=== PATIENT | male | born 1950 | race Caucasian/White ===

== ENCOUNTER 2023-01-14 21:18 | Emergency (ER) | payer MEDICARE ==
--- NOTE | 2023-01-14 21:22 | ED ---
General Adult HPI - General Source: patient, RN notes reviewed <Tracey Andrade - Last Filed: 01/14/23 22:05> - History of Present Illness Onset/Timin -: days(s) Severity scale (1-10): 0 Consistency: constant Improves with: none Worsens with: none Associated Symptoms: cough Treatments Prior to Arrival: none <Blake Baker - Last Filed: 01/22/23 17:07> - General Stated complaint: Fever - History of Present Illness Initial comments: 72 year old male presents to the emergency department for chief complaint of fever. Patient states that he underwent surgery 6 days ago for cancer. He had a right parotidectomy with lymph node removal. He has a drain in his neck and 2 in his leg. This was preformed by Dr. Pineda at [facility]. His states that today he started running a fever of 103 degrees. He took Tylenol 1000mg around 2 hours ago. (Tracey Andrade) Patient has 72-year-old man presenting to have evaluation of fever and cough. Patient believes that he started having fever yesterday but they did not take his temperature. Cough started last night/early this morning. Patient states nonproductive cough. No dyspnea. No pains. He denies drainage from the surgical sites. (Blake Baker) - Related Data Previous Rx's Medication Instructions Recorded Azithromycin [Zithromax] 0 mg PO DIRECTED #6 tab 01/14/23 Nirmatrelvir/Ritonavir [Paxlovid 1 each PO ONCE #1 pack 01/14/23 2X150 mg-100 mg (Eua)] Allergies Allergy/AdvReac Type Severity Reaction Status Date / Time No Known Allergies Allergy Verified 01/14/23 22:10 Review of Systems ROS Other: All systems not noted in ROS Statement are negative. <Tracey Andrade - Last Filed: 01/14/23 22:05> ROS Other: All systems not noted in ROS Statement are negative. Constitutional: Reports: fever Eyes: Denies: eye pain, eye discharge ENT: Denies: ear pain, throat pain, congestion Respiratory: Reports: cough. Denies: dyspnea, wheezes, hemoptysis Cardiovascular: Denies: chest pain, palpitations, edema Gastrointestinal: Denies: abdominal pain, nausea, vomiting, diarrhea Genitourinary: Denies: dysuria, hematuria <Blake Baker - Last Filed: 01/22/23 17:07> ROS Statement: Those systems with pertinent positive or pertinent negative responses have been documented in the HPI. General Exam <Tracey Andrade - Last Filed: 01/14/23 22:05> General appearance: alert Head exam: Present: atraumatic, normocephalic Eye exam: Present: other (Right eyelid weakness). Absent: scleral icterus, conjunctival injection, nystagmus ENT exam: Present: mucous membranes dry Neck exam: Present: other (Right neck with postsurgical changes, the incision clean dry and intact. No abnormal warmth or erythema.) Respiratory exam: Present: normal lung sounds bilaterally. Absent: respiratory distress, wheezes, rales, rhonchi, stridor, accessory muscle use Cardiovascular Exam: Present: regular rate, normal rhythm, normal heart sounds. Absent: systolic murmur, diastolic murmur, rubs, gallop GI/Abdominal exam: Present: soft. Absent: distended, tenderness, guarding, rebo und, rigid, mass, pulsatile mass Extremities exam: Present: normal inspection, normal capillary refill, other (Patient has left thigh surgical site with drains not having any purulent drainage. The surgical incisions are clean dry and intact with no abnormal warmth or erythema. No tenderness.) Back exam: Present: normal inspection. Absent: CVA tenderness (R), CVA tenderness (L) Neurological exam: Present: alert Skin exam: Present: warm, dry, intact, normal color. Absent: rash, erythema <Blake Baker - Last Filed: 01/22/23 17:07> - General Exam Comments Initial Comments: Visual Physical Exam Vital signs reviewed General: Well-appearing, nontoxic, no acute distress. Head: Normocephalic, atraumatic Eyes: PERRLA, EOMI ENT: Airway patent Chest: Nonlabored breathing Skin: No visual rash, normal skin tone Neuro: Alert and oriented 3 Musculoskeletal: No gross abnormalities (Tracey Andrade) Course Vital Signs 01/14/23 01/14/23 01/14/23 22:00 22:42 23:39 Temperature 100.3 F H 99.1 F Pulse Rate 92 79 Respiratory 18 18 16 Rate Blood Pressure 101/53 115/59 O2 Sat by Pulse 92 L 97 Oximetry 01/15/23 00:45 Temperature 98.5 F Pulse Rate 78 Respiratory 16 Rate Blood Pressure 118/56 O2 Sat by Pulse 94 L Oximetry Medical Decision Making <Tracey Andrade - Last Filed: 01/14/23 22:05> - Lab Data Result diagrams: 01/14/23 22:14 01/14/23 22:14 <Blake Baker - Last Filed: 01/22/23 17:07> - Medical Decision Making I preformed the quick note portion of this chart. Electronically signed by Tracey Andrade PA-C (Tracey Andrade) Patient is 72-year-old man with fever found to have positive covid test. The patient would like to go home. There is questionable infiltrate on the chest x- ray and therefore patient will have coarse antibiotics as well as Limited. We discussed appropriate further care and follow-up. He will have low threshold to return to emergency department, discussed return parameters. Was pt. sent in by a medical professional or institution (JAZMINE Borden, PAGE MAKEUP SYSTEM OPERATOR, urgent care, hospital, or jail...) When possible be specific @ -[No] Did you speak to anyone other than the patient for history (EMS, parent, family, police, friend...)? What history was obtained from this source @ -[No] Did you review nursing and triage notes (agree or disagree)? Why? @ -[I reviewed and agree with nursing and triage notes] Were old charts reviewed (outside hosp., previous admission, EMS record, old EKG, old radiological studies, urgent care reports/EKG's, jail records)? Report findings @ -[No old charts were reviewed] Differential Diagnosis (chest pain, altered mental status, abdominal pain women, abdominal pain men, vaginal bleeding, weakness, fever, dyspnea, syncope, headache, dizziness, GI bleed, back pain, seizure, CVA, palpatations, mental health, musculoskeletal)? @ -[Differential Syncope: Valvular disease, hypertrophic cardiomyopathy, pulmonary embolism, tamponade, tachycardia, bradycardia, [place], hypovolemia, hemorrhage, dissection, anemia, intracranial hemorrhage, seizure, hypoglycemia, carbon monoxide poisoning, this is not meant to be an all-inclusive list. Dyspnea EKG interpreted by me (3pts min.). @ -[Interpreted As above] X-rays interpreted by me (1pt min.). @ -[Interpreted as above CT interpreted by me (1pt min.). @ -[None done] U/S interpreted by me (1pt. min.). @ -[None done] What testing was considered but not performed or refused? (CT, X-rays, U/S, labs)? Why? @ -[None] What meds were considered but not given or refused? Why? @ -[None] Did you discuss the management of the patient with other professionals (professionals i.e. , PA, PAGE MAKEUP SYSTEM OPERATOR, lab, RT, psych nurse, social research assistant, door worker, teacher, enforcement safety officer, child welfare caseworker)? Give summary @ -[No] Was smoking cessation discussed for >3mins.? @ -[No] Was critical care preformed (if so, how long)? @ -[No] Were there social determinants of health that impacted care today? How? (Homelessness, low income, unemployed, alcoholism, drug addiction, transportation, low edu. Level, literacy, decrease access to med. care, intermediate, rehab)? @ -[No] Was there de-escalation of care discussed even if they declined (Discuss DNR or withdrawal of care, Hospice)? DNR status @ -[No] What co-morbidities impacted this encounter? (DM, HTN, Smoking, COPD, CAD, Cancer, CVA, ARF, Chemo, Hep., AIDS, mental health diagnosis, sleep apnea, morbid obesity)? @ -[None] Was patient admitted / discharged? Hospital course, mention meds given and route, prescriptions, significant lab abnormalities, going to OR and other pertinent info. @ -[Discharged, see above Undiagnosed new problem with uncertain prognosis? @ -[No] Drug Therapy requiring intensive monitoring for toxicity (Heparin, Nitro, Insulin, Cardizem)? @ -[No] Were any procedures done? @ -[No] Diagnosis/symptom? @ -[Acute COVID-19 infection Possible left lower lobe pneumonia Acute, or Chronic, or Acute on Chronic? @ -[Acute Uncomplicated (without systemic symptoms) or Complicated (systemic symptoms)? @ -[Uncomplicated Side effects of treatment? @ -[No] Exacerbation, Progression, or Severe Exacerbation? @ -[No] Poses a threat to life or bodily function? How? (Chest pain, [place], [place], pneumonia, PE, COPD, DKA, ARF, appy, cholecystitis, CVA, Diverticulitis, Homicidal, Suicidal, threat to staff... and all critical care pts) @ -[No] (KimicarsonBlake) - Lab Data Lab Results 01/14/23 01/14/23 01/14/23 Range/Units 22:14 22:14 22:14 WBC 5.6 (3.8-10.6) k/uL RBC 3.90 L (4.30-5.90) m/uL Hgb 12.2 L (13.0-17.5) gm/dL Hct 36.5 L (39.0-53.0) % MCV 93.5 (80.0-100.0) fL MCH 31.3 (25.0-35.0) pg MCHC 33.5 (31.0-37.0) g/dL RDW 13.3 (11.5-15.5) % Plt Count 299 (150-450) k/uL MPV 8.6 Neutrophils % (Manual) 60 % Band Neuts % (Manual) 9 % Lymphocytes % (Manual) 13 % Monocytes % (Manual) 18 % Neutrophils # (Manual) 3.80 (1.3-7.7) k/uL Lymphocytes # (Manual) 0.73 L (1.0-4.8) k/uL Monocytes # (Manual) 1.01 H (0-1.0) k/uL Nucleated RBCs 0 (0-0) /100 WBC Manual Slide Review Performed Sodium 129 L (137-145) mmol/L Potassium 4.2 (3.5-5.1) mmol/L Chloride 92 L (98-107) mmol/L Carbon Dioxide 27 (22-30) mmol/L Anion Gap 10 mmol/L BUN 29 H (9-20) mg/dL Creatinine 1.09 (0.66-1.25) mg/dL Est GFR (CKD-EPI)AfAm 79 (>60 ml/min/1.73 sqM) Est GFR (CKD-EPI)NonAf 68 (>60 ml/min/1.73 sqM) Glucose 116 H (74-99) mg/dL Plasma Lactic Acid Jose 1.5 (0.7-2.0) mmol/L Calcium 9.1 (8.4-10.2) mg/dL Total Bilirubin 0.9 (0.2-1.3) mg/dL AST 90 H (17-59) U/L ALT 91 H (4-49) U/L Alkaline Phosphatase 71 (38-126) U/L Total Protein 6.1 L (6.3-8.2) g/dL Albumin 3.5 (3.5-5.0) g/dL Influenza Type A (PCR) (Not Detectd) Influenza Type B (PCR) (Not Detectd) RSV (PCR) (Not Detectd) SARS-CoV-2 (PCR) (Not Detectd) 01/14/23 Range/Units 22:14 WBC (3.8-10.6) k/uL RBC (4.30-5.90) m/uL Hgb (13.0-17.5) gm/dL Hct (39.0-53.0) % MCV (80.0-100.0) fL MCH (25.0-35.0) pg MCHC (31.0-37.0) g/dL RDW (11.5-15.5) % Plt Count (150-450) k/uL MPV Neutrophils % (Manual) % Band Neuts % (Manual) % Lymphocytes % (Manual) % Monocytes % (Manual) % Neutrophils # (Manual) (1.3-7.7) k/uL Lymphocytes # (Manual) (1.0-4.8) k/uL Monocytes # (Manual) (0-1.0) k/uL Nucleated RBCs (0-0) /100 WBC Manual Slide Review Sodium (137-145) mmol/L Potassium (3.5-5.1) mmol/L Chloride (98-107) mmol/L Carbon Dioxide (22-30) mmol/L Anion Gap mmol/L BUN (9-20) mg/dL Creatinine (0.66-1.25) mg/dL Est GFR (CKD-EPI)AfAm (>60 ml/min/1.73 sqM) Est GFR (CKD-EPI)NonAf (>60 ml/min/1.73 sqM) Glucose (74-99) mg/dL Plasma Lactic Acid Jose (0.7-2.0) mmol/L Calcium (8.4-10.2) mg/dL Total Bilirubin (0.2-1.3) mg/dL AST (17-59) U/L ALT (4-49) U/L Alkaline Phosphatase (38-126) U/L Total Protein (6.3-8.2) g/dL Albumin (3.5-5.0) g/dL Influenza Type A (PCR) Not Detected (Not Detectd) Influenza Type B (PCR) Not Detected (Not Detectd) RSV (PCR) Not Detected (Not Detectd) SARS-CoV-2 (PCR) Detected A (Not Detectd) Disposition <Tracey Andrade - Last Filed: 01/14/23 22:05> Is patient prescribed a controlled substance at d/c from ED?: No <Blake Baker - Last Filed: 01/22/23 17:07> Clinical Impression: COVID-19 Disposition: HOME SELF-CARE Condition: Fair Instructions (If sedation given, give patient instructions): COVID-19 (Coronavirus Disease 2019) (ED) Prescriptions: Nirmatrelvir/Ritonavir [Paxlovid 2X150 mg-100 mg (Eua)] 1 each PO ONCE #1 pack Azithromycin [Zithromax] 0 mg PO DIRECTED #6 tab Referrals: Stephan Boggs MD [Primary Care Provider] - 1-2 days
[2023-01-14 22:39] LABS: HCT 36.5 % (39.0-53.0); HGB 12.2 gm/dL (13.0-17.5); MCH 31.3 pg (25.0-35.0); MCHC 33.5 g/dL (31.0-37.0); MCV 93.5 fL (80.0-100.0); Mean Platelet Volume 8.6; Platelet Count 299 k/uL (150-450); RDW 13.3 % (11.5-15.5); WBC 5.6 k/uL (3.8-10.6)
[2023-01-14 22:52] LABS: Band Neutrophils % 9 %; Lymphocytes # (M) 0.73 k/uL (1.0-4.8); Monocytes # (M) 1.01 k/uL (0-1.0); Neutrophils % (M) 60 %; Nucleated Red Blood Cells 0 /100 WBC (0-0); Total Cells Counted 100
--- NOTE | 2023-01-14 22:58 | XR ---
EXAM: XR Chest, 2 Views CLINICAL HISTORY: ITS.REASON XR Reason: fever TECHNIQUE: Frontal and lateral views of the chest. COMPARISON: No relevant prior studies available. FINDINGS: Lungs: There is a patchy opacity at the left lung base. Mild to moderate peribronchial thickening of the central lower lobe bronchi. No consolidation. Eventration of the right hemidiaphragm. Pleural space: There is a small mild fluid in the minor fissure. No pneumothorax. Heart: Unremarkable. No cardiomegaly. Mediastinum: Unremarkable. Bones/joints: Unremarkable. IMPRESSION: Findings concerning for bronchitis with infiltrate in the left lower lobe.
[2023-01-14] MEDS ORDERED: ACETAMINOPHEN TAB 325 MG TAB PO STA (23:07)
[2023-01-14] MEDS ORDERED: SODIUM CHLORIDE 0.9% 500 ML 500 ML IV STA (23:07)
[2023-01-14 23:23] LABS: ALT 91 U/L (4-49); AST 90 U/L (17-59); African American GFR (CKD) 79 (>60 ml/min/1.73 sqM); Albumin 3.5 g/dL (3.5-5.0); Alkaline Phosphatase 71 U/L (38-126); Blood Urea Nitrogen 29 mg/dL (9-20); Calcium 9.1 mg/dL (8.4-10.2); Carbon Dioxide 27 mmol/L (22-30); Chloride 92 mmol/L (98-107); Glucose 116 mg/dL (74-99); Non-African American GFR(CKD) 68 (>60 ml/min/1.73 sqM); Total Bilirubin 0.9 mg/dL (0.2-1.3); Total Protein 6.1 g/dL (6.3-8.2)
[2023-01-14 23:53] LABS: Anion Gap 10 mmol/L; Potassium 4.2 mmol/L (3.5-5.1); Sodium 129 mmol/L (137-145)
[2023-01-14] MEDS ORDERED: AZITHROMYCIN 500 MG TAB PO STA (23:53)
[2023-01-15 00:49] VITALS: BP 118/56; PULSE 78; RESP 16; TEMP 98.5
== END 2023-01-15 00:48 | disposition home or self-care (01) ==
LOC: EC 21:18
DX: U07.1 COVID-19 (principal)
CPT/HCPCS: 36415; 80053; 83605; 85025; 87040; 87636; 71046; 99284; 96365; J0696

== ENCOUNTER 2024-02-03 19:28 | Inpatient (IN) | payer MEDICARE ==
--- NOTE | 2024-02-03 19:40 | ED ---
General Adult HPI - General Chief complaint: Chest Pain Stated complaint: CHEST PAIN Time Seen by Provider: 02/03/24 19:33 Source: patient, RN notes reviewed Mode of arrival: ambulatory Limitations: no limitations - History of Present Illness Initial comments: Patient is a 73-year-old male presenting to the emergency department with concerns for chest discomfort. Onset of symptoms was around 45 minutes ago. Discomfort has been waxing and waning, +7/10, currently 2/10. Discomfort, pressure or tightness. No history of similar symptoms previously. Patient did walk steps prior to onset. There are some radiation to both arms. No associated chest pain, nausea, or diaphoresis - Related Data Previous Rx's Medication Instructions Recorded Azithromycin [Zithromax] 0 mg PO DIRECTED #6 tab 01/14/23 Nirmatrelvir/Ritonavir [Paxlovid 1 each PO ONCE #1 pack 01/14/23 2X150 mg-100 mg (Eua)] Allergies Allergy/AdvReac Type Severity Reaction Status Date / Time No Known Allergies Allergy Verified 02/03/24 19:31 Review of Systems ROS Statement: Those systems with pertinent positive or pertinent negative responses have been documented in the HPI. ROS Other: All systems not noted in ROS Statement are negative. Constitutional: Denies: fever Eyes: Denies: eye pain ENT: Denies: ear pain Respiratory: Denies: cough, dyspnea Cardiovascular: Reports: as per HPI, chest pain Endocrine: Denies: fatigue Gastrointestinal: Denies: abdominal pain Musculoskeletal: Denies: back pain Past Medical History Past Medical History: Cancer, Diabetes Mellitus, Hyperlipidemia, Hypertension, Osteoarthritis (OA) History of Any Multi-Drug Resistant Organisms: None Reported Past Surgical History: Orthopedic Surgery Additional Past Surgical History / Comment(s): parotidectomy. achilles repair. bilat knee replacement Past Psychological History: No Psychological Hx Reported Smoking Status: Former smoker Past Alcohol Use History: None Reported Past Drug Use History: None Reported General Exam Limitations: no limitations General appearance: alert, in no apparent distress Head exam: Present: normocephalic Eye exam: Present: normal appearance Neck exam: Present: normal inspection Respiratory exam: Present: normal lung sounds bilaterally Cardiovascular Exam: Present: regular rate, normal rhythm, normal heart sounds Expanded Peripheral pulses: 2+: Radial (R), Radial (L), Dorsalis Pedis (R), Dorsalis Pedis (L) GI/Abdominal exam: Present: soft. Absent: tenderness Extremities exam: Present: normal inspection. Absent: pedal edema, calf tenderness Neurological exam: Present: alert Psychiatric exam: Present: normal affect, normal mood Skin exam: Present: normal color Course Vital Signs 02/03/24 02/03/24 02/03/24 19:28 20:05 20:29 Temperature 97.9 F Pulse Rate 69 106 H Pulse Rate [ 94 Hearing Aid Technician ] Respiratory 16 18 Rate Blood Pressure 182/91 155/89 O2 Sat by Pulse 97 94 L Oximetry EKG Findings - EKG Results: EKG: interpreted by ERMD (Some borderline lateral ST depression. suprav entricular premature complexe), sinus rhythm, normal axis Medical Decision Making - Medical Decision Making MDM back was pt. sent in by a medical professional or institution (, PA, RISK CONTROL PRODUCT LIABILITY DIRECTOR, urgent care, hospital, or [facility]...) When possible be specific @ -No Did you speak to anyone other than the patient for history (EMS, parent, family, police, friend...)? What history was obtained from this source @ -Family is present helps provide history including onset of symptoms Did you review nursing and triage notes (agree or disagree)? Why? @ -I reviewed and agree with nursing and triage notes Were old charts reviewed (outside hosp., previous admission, EMS record, old EKG, old radiological studies, urgent care reports/EKG's, [facility] records)? Report findings @ -Previous chest x-ray reviewed Differential Diagnosis (chest pain, altered mental status, abdominal pain women, abdominal pain men, vaginal bleeding, weakness, fever, dyspnea, syncope, headache, dizziness, GI bleed, back pain, seizure, CVA, palpatations, mental he alth, musculoskeletal)? @ -[facility] differential differential Chest Pain: Stable Angina, Unstable Angina, STEMI, NSTEMI Aortic Dissection, Pneumothorax, Musculoskeletal, Esophageal Spasm GERD, Cholecystitis, Pancreatitis, Zoster, this is not meant to be an all-inclusive list. EKG interpreted by me (3pts min.). @ -As above X-rays interpreted by me (1pt min.). @ -Chest x-ray shows no acute process CT interpreted by me (1pt min.). @ -None done U/S interpreted by me (1pt. min.). @ -None done What testing was considered but not performed or refused? (CT, X-rays, U/S, labs)? Why? @ -None What meds were considered but not given or refused? Why? @ -None Did you discuss the management of the patient with other professionals (professionals i.e. , PA, RISK CONTROL PRODUCT LIABILITY DIRECTOR, lab, RT, psych nurse, pediatric social worker, precision instrument maker and repairer, teacher, agricultural extension officer, onsite case manager)? Give summary @ -Case was discussed with Dr. Conti who will admit covering hospital call Was smoking cessation discussed for >3mins.? @ -No Was critical care preformed (if so, how long)? @ -No Were there social determinants of health that impacted care today? How? (Homelessness, low income, unemployed, alcoholism, drug addiction, transportation, low edu. Level, literacy, decrease access to med. care, skilled nursing, rehab)? @ -No Was there de-escalation of care discussed even if they declined (Discuss DNR or withdrawal of care, Hospice)? DNR status @ -No What co-morbidities impacted this encounter? (DM, HTN, Smoking, COPD, CAD, Cancer, CVA, ARF, Chemo, Hep., AIDS, mental health diagnosis, sleep apnea, morbid obesity)? @ -None Was patient admitted / discharged? Hospital course, mention meds given and route, prescriptions, significant lab abnormalities, going to OR and other pertinent info. @ -Patient presents with chest discomfort. Initial testing unremarkable. Patient will be admitted with cardiac consult. Admission orders written Undiagnosed new problem with uncertain prognosis? @ -No Drug Therapy requiring intensive monitoring for toxicity (Heparin, Nitro, Insulin, Cardizem)? @ -No Were any procedures done? @ -No Diagnosis/symptom? @ -Chest pain Acute, or Chronic, or Acute on Chronic? @ -Acute Uncomplicated (without systemic symptoms) or Complicated (systemic symptoms)? @ -Default Side effects of treatment? @ -No Exacerbation, Progression, or Severe Exacerbation? @ -No Poses a threat to life or bodily function? How? (Chest pain, [place], [place], pneumonia, PE, COPD, DKA, ARF, appy, cholecystitis, CVA, Diverticulitis, Homicidal, Suicidal, threat to staff... and all critical care pts) @ -Threat to cardiac function - Lab Data Result diagrams: 02/03/24 19:43 02/03/24 19:43 Lab Results 02/03/24 02/03/24 02/03/24 Range/Units 19:43 19:43 19:43 WBC 7.6 (3.8-10.6) k/uL RBC 4.78 (4.30-5.90) m/uL Hgb 14.6 (13.0-17.5) gm/dL Hct 45.3 (39.0-53.0) % MCV 94.9 (80.0-100.0) fL MCH 30.6 (25.0-35.0) pg MCHC 32.3 (31.0-37.0) g/dL RDW 13.7 (11.5-15.5) % Plt Count 240 (150-450) k/uL MPV 7.2 Neutrophils % 68 % Lymphocytes % 20 % Monocytes % 7 % Eosinophils % 2 % Basophils % 0 % Neutrophils # 5.1 (1.3-7.7) k/uL Lymphocytes # 1.5 (1.0-4.8) k/uL Monocytes # 0.5 (0-1.0) k/uL Eosinophils # 0.1 (0-0.7) k/uL Basophils # 0.0 (0-0.2) k/uL PT 9.8 L (10.0-12.5) sec INR 0.9 (<1.2) APTT 24.4 (22.0-30.0) sec D-Dimer 0.56 (<0.60) mg/L FEU Sodium 138 (137-145) mmol/L Potassium 4.2 (3.5-5.1) mmol/L Chloride 102 (98-107) mmol/L Carbon Dioxide 28 (22-30) mmol/L Anion Gap 8 mmol/L BUN 33 H (9-20) mg/dL Creatinine 1.18 (0.66-1.25) mg/dL Est GFR (CKD-EPI)AfAm 71 (>60 ml/min/1.73 sqM) Est GFR (CKD-EPI)NonAf 62 (>60 ml/min/1.73 sqM) Glucose 192 H (74-99) mg/dL Calcium 9.9 (8.4-10.2) mg/dL Magnesium 2.0 (1.6-2.3) mg/dL Total Bilirubin 0.9 (0.2-1.3) mg/dL AST 30 (17-59) U/L ALT 41 (4-49) U/L Alkaline Phosphatase 108 (38-126) U/L Troponin I (0.000-0.034) ng/mL Total Protein 7.3 (6.3-8.2) g/dL Albumin 4.6 (3.5-5.0) g/dL 02/03/24 Range/Units 19:43 WBC (3.8-10.6) k/uL RBC (4.30-5.90) m/uL Hgb (13.0-17.5) gm/dL Hct (39.0-53.0) % MCV (80.0-100.0) fL MCH (25.0-35.0) pg MCHC (31.0-37.0) g/dL RDW (11.5-15.5) % Plt Count (150-450) k/uL MPV Neutrophils % % Lymphocytes % % Monocytes % % Eosinophils % % Basophils % % Neutrophils # (1.3-7.7) k/uL Lymphocytes # (1.0-4.8) k/uL Monocytes # (0-1.0) k/uL Eosinophils # (0-0.7) k/uL Basophils # (0-0.2) k/uL PT (10.0-12.5) sec INR (<1.2) APTT (22.0-30.0) sec D-Dimer (<0.60) mg/L FEU Sodium (137-145) mmol/L Potassium (3.5-5.1) mmol/L Chloride (98-107) mmol/L Carbon Dioxide (22-30) mmol/L Anion Gap mmol/L BUN (9-20) mg/dL Creatinine (0.66-1.25) mg/dL Est GFR (CKD-EPI)AfAm (>60 ml/min/1.73 sqM) Est GFR (CKD-EPI)NonAf (>60 ml/min/1.73 sqM) Glucose (74-99) mg/dL Calcium (8.4-10.2) mg/dL Magnesium (1.6-2.3) mg/dL Total Bilirubin (0.2-1.3) mg/dL AST (17-59) U/L ALT (4-49) U/L Alkaline Phosphatase (38-126) U/L Troponin I 0.032 (0.000-0.034) ng/mL Total Protein (6.3-8.2) g/dL Albumin (3.5-5.0) g/dL Disposition Clinical Impression: Chest pain Disposition: ADMITTED IP TO THIS HOSP Is patient prescribed a controlled substance at d/c from ED?: No Referrals: Nonstaff,Physician [Primary Care Provider] - 1-2 days Time of Disposition: 20:58
[2024-02-03] MEDS: ASPIRIN 81 MG PO STA (19:42)
[2024-02-03] MEDS: NITROGLYCERIN OINT 1 INCH/GM PACKET TOPICAL STA (19:43)
[2024-02-03 20:03] LABS: Basophils % (A) 0 %; Eosinophils # (A) 0.1 k/uL (0-0.7); Eosinophils % (A) 2 %; HCT 45.3 % (39.0-53.0); HGB 14.6 gm/dL (13.0-17.5); Lymphocytes # (A) 1.5 k/uL (1.0-4.8); Lymphocytes % (A) 20 %; MCH 30.6 pg (25.0-35.0); MCHC 32.3 g/dL (31.0-37.0); MCV 94.9 fL (80.0-100.0); Mean Platelet Volume 7.2; Monocytes # (A) 0.5 k/uL (0-1.0); Monocytes % (A) 7 %; Neutrophils # (A) 5.1 k/uL (1.3-7.7); Neutrophils % (A) 68 %; Platelet Count 240 k/uL (150-450); RBC 4.78 m/uL (4.30-5.90); RDW 13.7 % (11.5-15.5); WBC 7.6 k/uL (3.8-10.6)
--- NOTE | 2024-02-03 20:05 | XR ---
EXAMINATION TYPE: XR chest 2V DATE OF EXAM: 02/03/2024 7:57 PM COMPARISON: 01/14/2023 CLINICAL INDICATION: Male, 73 years old with history of Chest Pain, TECHNIQUE: XR chest 2V view(s) obtained. FINDINGS: The heart size is normal. The pulmonary vasculature is normal. The lungs are clear. Chronic elevation of the right diaphragm is present IMPRESSION: 1. No acute pulmonary process. [facility], , 02/03/2024 8:03 PM
[2024-02-03 20:36] LABS: INR 0.9 (<1.2); Partial Thromboplastin Time 24.4 sec (22.0-30.0); Prothrombin Time 9.8 sec (10.0-12.5)
[2024-02-03 20:42] LABS: ALT 41 U/L (4-49); AST 30 U/L (17-59); African American GFR (CKD) 71 (>60 ml/min/1.73 sqM); Albumin 4.6 g/dL (3.5-5.0); Alkaline Phosphatase 108 U/L (38-126); Anion Gap 8 mmol/L; Blood Urea Nitrogen 33 mg/dL (9-20); Calcium 9.9 mg/dL (8.4-10.2); Carbon Dioxide 28 mmol/L (22-30); Chloride 102 mmol/L (98-107); Glucose 192 mg/dL (74-99); Non-African American GFR(CKD) 62 (>60 ml/min/1.73 sqM); Potassium 4.2 mmol/L (3.5-5.1); Sodium 138 mmol/L (137-145); Total Bilirubin 0.9 mg/dL (0.2-1.3); Total Protein 7.3 g/dL (6.3-8.2)
[2024-02-03] MEDS ORDERED: NITROGLYCERIN SL TABS 0.4 MG TAB SUBLINGUAL PRN (20:58)
[2024-02-03] MEDS: NITROGLYCERIN OINT 1 INCH/GM PACKET TOPICAL SCH (23:24)
[2024-02-04] MEDS: HEPARIN SOD,PORK IN 0.45% NACL 25,000 UNIT in 0.45% NACL 1 250ML.BAG IV SCH (01:14)
[2024-02-04] MEDS: HEPARIN SODIUM 1,000 UN/ML (10ML VL) IV ONE (01:15)
[2024-02-04] MEDS: HEPARIN SODIUM 1,000 UN/ML (10ML VL) IV PRN (06:10)
[2024-02-04] MEDS: ASPIRIN 325 MG TAB PO SCH (08:32)
[2024-02-04 08:46] LABS: LDL Cholesterol,Calculated 125.1 mg/dL (0.0-131.0)
--- NOTE | 2024-02-04 09:12 | P.CRDCN ---
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 He denies any previous history of cardiac disease and has never had a heart catheterizat ion nor stress test. Patient complains of jaw pain thought to be related to parotid surgery, increased fatigue for one week along with chest pain across chest. No shortness of breath, nausea, lightheadedness, dizziness. Symptoms seemed to get more frequent and noticed chest pain more severe yesterday after walking up and down a flight of stairs. Blood pressure 151/97, heart rate 82, pulse ox 99% on room air. Patient is seen today in the emergency center waiting for a bed on the cardiac stepdown unit. Patient has been started on a heparin drip and Nitropaste. Discussed option of cardiac catheterization and patient is agreeable to move forward with this today. Regarding family medical history, patient does not know any of his family medical history as he is adopted.. - EKG: Multiple EKGs reviewed, evidence of ST depression laterally and PACs, improvement of ST depression noted on last EKG - Chest x-ray: No acute process. - Laboratory studies: Troponin 0.032, 1.37, 2.61. BUN 33 creatinine 1.18, potassium 4.2. Blood sugar 192. CBC unremarkable. D-dimer 0.56. - Home cardiac medications: Valsartan/HCTZ 80-12 daily. Review Of Systems: At the time of my exam: CONSTITUTIONAL: Denies fever or chills. HEENT: Denies blurred vision, vision changes, or eye pain. Denies hemoptysis CARDIOVASCULAR: Reports jaw pain and chest pain. Denies orthopnea. Denies PND. Denies palpitations RESPIRATORY: Denies shortness of breath. GASTROINTESTINAL: Denies abdominal pain. Denies nausea or vomiting. HEMATOLOGIC: Denies bleeding disorders. GENITOURINARY: Denies any blood in urine. SKIN: Denies puritis. Denies rash. Physical examination: Gen: This is a 73-year-old male in no acute distress VS: reviewed HEENT: Head is atraumatic, normocephalic. Pupils equal, round. Sclerae is anicteric. NECK: Supple. No JVD. LUNGS: Clear to auscultation. No wheezes or rhonchi. No intercostal retra ctions. HEART: Regular rate and rhythm. No murmur. ABDOMEN: Soft No tenderness. EXTREMITIES: No pedal edema. No calf tenderness. NEUROLOGICAL: Patient is awake, alert and oriented x3. Assessment: NSTEMI Chest pain secondary to above Parotid cancer s/p resection and radiation Hypertension History of diabetes off medication following weight loss Remote history of tobacco use Weekly alcohol use 5 drinks or less Plan: Continue patient on heparin drip Resume valsartan Start pateint on aspirin 81 mg daily, atorvastatin 80 mg hs, metoprolol tartrate 25 mg bid Schedule patient for cardiac cath today with Dr. Pendleton Obtain 2-D echocardiogram and Doppler study to assess cardiac structure and f unction Further recommendations to follow based upon clinical course Thank you kindly for this consultation. Nurse practitioner note has been reviewed, I agree with documented findings and plan of care. Patient was seen and examined. Past Medical History Past Medical History: Cancer, Diabetes Mellitus, Hyperlipidemia, Hypertension, Osteoarthritis (OA) Additional Past Medical History / Comment(s): parotidectomy with nerve damage c ausing right sided facial paralysis. lagophthalmos (cannot fully close right eye) History of Any Multi-Drug Resistant Organisms: None Reported Past Surgical History: Orthopedic Surgery Additional Past Surgical History / Comment(s): parotidectomy. achilles repair. bilat knee replacement. eyelid weighting Past Psychological History: No Psychological Hx Reported Smoking Status: Former smoker Past Alcohol Use History: None Reported Past Drug Use History: None Reported Medications and Allergies Allergies Allergy/AdvReac Type Severity Reaction Status Date / Time No Known Allergies Allergy Verified 02/04/24 08:17 Physical Exam Vitals: Vital Signs Temp Pulse Pulse Resp BP Pulse Ox 02/04/24 07:15 97.8 F 82 16 108/86 99 02/04/24 06:39 75 16 117/83 96 02/04/24 05:22 97 16 128/84 96 02/04/24 04:17 79 16 135/75 95 02/04/24 02:29 92 12 128/77 97 02/04/24 00:49 77 14 127/69 95 02/03/24 23:16 93 11 L 117/69 94 L 02/03/24 21:35 92 16 123/74 95 02/03/24 20:29 106 H 18 155/89 94 L 02/03/24 20:05 94 02/03/24 19:28 97.9 F 69 16 182/91 97 Intake and Output 02/03/24 02/04/24 02/04/24 22:59 06:59 14:59 Intake Total 48.667 Balance 48.667 Intake: Intake, IV Titration 48.667 Amount Heparin Sod,Pork in 0.45% 48.667 NaCl 25,000 unit In 0.45 % NaCl 1 250ml.bag @ 10. 599 UNITS/KG/HR 10 mls/hr IV .Q24H [facility] Rx#: [id number] Other: Weight 94.347 kg Results 02/03/24 19:43 02/03/24 19:43 Cardiac Enzymes 02/03/24 02/03/24 02/03/24 Range/Units 19:43 19:43 22:54 AST 30 (17-59) U/L Troponin I 0.032 1.370 H* (0.000-0.034) ng/mL 02/04/24 Range/Units 00:28 AST (17-59) U/L Troponin I 2.610 H* (0.000-0.034) ng/mL Coagulation 02/03/24 02/04/24 Range/Units 19:43 05:39 PT 9.8 L (10.0-12.5) sec APTT 24.4 41.0 H (22.0-30.0) sec CBC 02/03/24 Range/Units 19:43 WBC 7.6 (3.8-10.6) k/uL RBC 4.78 (4.30-5.90) m/uL Hgb 14.6 (13.0-17.5) gm/dL Hct 45.3 (39.0-53.0) % Plt Count 240 (150-450) k/uL Comprehensive Metabolic Panel 02/03/24 Range/Units 19:43 Sodium 138 (137-145) mmol/L Potassium 4.2 (3.5-5.1) mmol/L Chloride 102 (98-107) mmol/L Carbon Dioxide 28 (22-30) mmol/L BUN 33 H (9-20) mg/dL Creatinine 1.18 (0.66-1.25) mg/dL Glucose 192 H (74-99) mg/dL Calcium 9.9 (8.4-10.2) mg/dL AST 30 (17-59) U/L ALT 41 (4-49) U/L Alkaline Phosphatase 108 (38-126) U/L Total Protein 7.3 (6.3-8.2) g/dL Albumin 4.6 (3.5-5.0) g/dL Current Medications Generic Name Dose Route Start Last Admin Trade Name Freq PRN Reason Stop Dose Admin Aspirin 325 mg 02/04/24 09:00 Aspirin 325 Mg Tab PO DAILY [facility] Heparin Sodium (Porcine) 0 unit 02/04/24 01:03 02/04/24 06:10 Heparin Sodium 1,000 Un/Ml (10ml Vl) IV 2,358.675 unit PER PROTOCOL PRN Administration Low PTT Protocol Heparin Sodium/Sodium Chloride 250 mls @ 10 mls/hr 02/04/24 01:15 02/04/24 06:06 25,000 unit/ Sodium Chloride IV 12.599 units/kg/hr .Q24H [facility] 11.887 mls/hr Titration Protocol 10.599 UNITS/KG/HR Nitroglycerin 0.4 mg 02/03/24 20:58 Nitroglycerin Sl Tabs 0.4 Mg Tab SUBLINGUAL Q5M PRN Chest Pain Nitroglycerin 1 inch 02/04/24 00:00 02/04/24 05:21 Nitroglycerin Oint 1 Inch/Gm Packet TOPICAL 1 inch Q6HR [facility] Administration Intake and Output 02/03/24 02/04/24 02/04/24 22:59 06:59 14:59 Intake Total 48.667 Balance 48.667 Intake: Intake, IV Titration 48.667 Amount Heparin Sod,Pork in 0.45% 48.667 NaCl 25,000 unit In 0.45 % NaCl 1 250ml.bag @ 10. 599 UNITS/KG/HR 10 mls/hr IV .Q24H [facility] Rx#: [id number] Other: Weight 94.347 kg 02/03/24 19:43 02/03/24 19:43
[2024-02-04] MEDS ORDERED: NITROGLYCERIN SL TABS 0.4 MG TAB SUBLINGUAL PRN (09:13)
[2024-02-04] MEDS ORDERED: ALPRAZolam 0.5 MG TAB PO PRN (09:13)
[2024-02-04] MEDS ORDERED: ALPRAZolam 0.25 MG TAB PO PRN (09:13)
[2024-02-04] MEDS: ACETAMINOPHEN TAB 325 MG TAB PO PRN (09:16)
[2024-02-04] MEDS: METOPROLOL TARTRATE 25 MG TAB PO SCH (09:17)
[2024-02-04] MEDS: ASPIRIN 325 MG TAB PO STA (09:22)
[2024-02-04] MEDS: VALSARTAN 80 MG TAB PO SCH (09:39)
[2024-02-04] MEDS: ATORVASTATIN 80 MG TAB PO STA (09:39)
[2024-02-04] MEDS: SODIUM CHLORIDE 0.9% 1,000 ML IV SCH (09:41)
[2024-02-04] MEDS: HEPARIN SODIUM,PORCINE 10,000 UNIT in SODIUM CHLORIDE 0.9% 1,000 ML IRRIGATION PRN (14:26)
[2024-02-04] MEDS: HEPARIN SODIUM,PORCINE (1 ML) 2,500 UNIT in SODIUM CHLORIDE 0.9% 250 ML IRRIGATION PRN (14:26)
[2024-02-04] MEDS: SODIUM CHLORIDE 0.9% 600 ML IV ONE (14:26)
[2024-02-04] MEDS: MIDAZOLAM 2 MG/2 ML VIAL IVP ONE ×2 (14:50→14:59)
[2024-02-04] MEDS: fentaNYL (PF) 50 MCG/ML 2 ML AMP IVP ONE ×2 (14:50→14:59)
[2024-02-04] MEDS: LIDOCAINE 1% INJ 10MG/ML (20 ML MDV) SQ ONE ×2 (14:58→14:59)
[2024-02-04] MEDS: VERAPAMIL SYRINGE (5 MG/10 ML) INTRAARTER ONE (15:00)
[2024-02-04] MEDS: HEPARIN SODIUM 1,000 UN/ML (10ML VL) IVP ONE ×3 (15:02→15:13)
[2024-02-04] MEDS: TICAGRELOR 90 MG TAB PO ONE (15:10)
--- NOTE | 2024-02-04 15:11 | CA ---
Transthoracic Echo Report Name: Sidney Lieberman Age: 73 Gender: M : 1950 Exam Date: 02/04/2024 09:45 Exam Location: [facility] Ht (in): 75 Wt (lb): 208 Ordering Physician: Angelic Peña Attending/Referring Phys: [facility]r Implementation Specialist Karla Kerr RDCS Procedure CPT: Indications: LVF Cardiac Hx: Technical Quality: Fair Contrast 1: Total Dose (mL): Contrast 2: Total Dose (mL): MEASUREMENTS (Male / Female) Normal Values 2D ECHO LV Diastolic Diameter PLAX 5.3 cm 4.2 - 5.9 / 3.9 - 5.3 cm LV Systolic Diameter PLAX 3.8 cm IVS Diastolic Thickness 1.0 cm 0.6 - 1.0 / 0.6 - 0.9 cm LVPW Diastolic Thickness 1.0 cm 0.6 - 1.0 / 0.6 - 0.9 cm LV Relative Wall Thickness 0.4 RV Internal Dim ED PLAX 2.3 cm LA Systolic Diameter LX 3.4 cm 3.0 - 4.0 / 2.7 - 3.8 cm LV Diastolic Volume MOD BP 76.8 cm??? 67 - 155 / 56 - 104 cm??? LV Systolic Volume MOD BP 27.3 cm??? 22 - 58 / 19 - 49 cm??? LV Ejection Fraction MOD BP 64.4 % >= 55 % LV Cardiac Index MOD BP 1918.7 cm???/min???m??? LV Diastolic Volume MOD 4C 65.4 cm??? LV Systolic Volume MOD 4C 27.1 cm??? LV Ejection Fraction MOD 4C 58.5 % LV Cardiac Index MOD 4C 1483.7 cm???/min???m??? LV Diastolic Length 4C 8.4 cm LV Systolic Length 4C 7.7 cm LV Diastolic Volume MOD 2C 79.1 cm??? LV Systolic Volume MOD 2C 23.7 cm??? LV Ejection Fraction MOD 2C 70.0 % LV Cardiac Index MOD 2C 2147.8 cm???/min???m??? LV Diastolic Length 2C 7.3 cm LV Systolic Length 2C 6.6 cm LA Volume 46.0 cm??? 18 - 58 / 22 - 52 cm??? LA Volume Index 20.5 cm???/m??? 16 - 28 cm???/m??? M-MODE Aortic Root Diameter MM 3.8 cm LA Systolic Diameter MM 4.0 cm LA Ao Ratio MM 1.0 AV Cusp Separation MM 2.3 cm DOPPLER AV Peak Velocity 108.5 cm/s AV Peak Gradient 4.7 mmHg AI Peak Velocity 360.6 cm/s AI Peak Gradient 52.0 mmHg AI Pressure Half Time 991.4 ms MV Area PHT 3.4 cm??? Mitral E Point Velocity 45.0 cm/s Mitral A Point Velocity 79.5 cm/s Mitral E to A Ratio 0.6 MV Deceleration Time 222.4 ms FINDINGS Left Ventricle Left ventricular ejection fraction is estimated at 55-60 %. Normal left ventricular systolic function with no obvious regional wall motion abnormalities. Left ventricular cavity size normal. Right Ventricle Normal right ventricular size and function. Right ventricular systolic pressure within normal limits. Right Atrium Mild right atrial dilatation. Left Atrium Normal left atrial size. Mitral Valve Structurally normal mitral valve. Trace mitral regurgitation. No mitral stenosis. Aortic Valve Trileaflet aortic valve.no aortic stenosis. Mild aortic regurgitation. Tricuspid Valve Structurally normal tricuspid valve. Mild tricuspid regurgitation. No tricuspid stenosis. Pulmonic Valve Structurally normal pulmonic valve. Trace pulmonic regurgitation. No pulmonic stenosis. Pericardium No pericardial or pleural effusion. Aorta Mild aortic dilatation at the level of the sinuses of valsalva (root). CONCLUSIONS LVEF 55% No obvious regional wall motion abnormality. No significant diastolic dysfunction Mild aortic regurgitation, mild tricuspid regurgitation Aortic root measured at 3.8 cm which is upper limit of normal Previewed by: Dr Enmanuel Bledsoe (Electronically Signed) Final Date: 04 February 2024 15:10
[2024-02-04] MEDS: NITROGLYCERIN 1000MCG/10ML SYRINGE INTRACORON ONE (15:35)
[2024-02-04] MEDS: IOPAMIDOL-370 100ML BTL INJ ONE ×2 (15:47)
[2024-02-04] MEDS ORDERED: ATROPINE SULFATE 0.1 MG/ML 10ML SYRINGE IV PRN (16:11)
[2024-02-04] MEDS ORDERED: MAG HYDROX/AL HYDROX/SIMETH 30 ML CUP PO PRN (16:11)
[2024-02-04] MEDS ORDERED: RX INFO: IV CONTRAST WAS GIVEN 1 EACH MISC MISCELLANE PRN (16:11)
[2024-02-04] MEDS ORDERED: ZOLPIDEM 5 MG TAB PO PRN (16:11)
--- NOTE | 2024-02-04 16:11 | P.PRCINT ---
Percutaneous Coronary Int. - Percutaneous Coronary Intervention Percutaneous Coronary Intervention: PROCEDURES PERFORMED: Bilateral coronary angiography, ultrasound guided arterial access, PCI mid circumflex with a 3.5 x 33m Xience ELI, post dilated with a 4.0mm NC balloon, IVUS circumflex INDICATION: NSTEMI CONSENT:I have discussed the risks, benefits and alternative therapies for the above-mentioned procedure and for both sedation/analgesia as well as necessary blood product administration, if indicated, as they pertain to this patient. The patient has indicated understanding and acceptance of the risks and procedures discussed. PROCEDURE: After the risks, benefits and alternatives of the above mentioned procedure explained in detail with the patient, informed consent was obtained. Patient was taken to the catheterization lab and prepped and draped in usual fashion. Ultrasound guidance was used to assess for arterial access. 1% lidocaine was used to anesthetize the right radial artery. A 6-Barbadian sheath was placed in the right radial artery using modified Seldinger technique and ultrasound guidance. Left coronary angiography was performed with a 5-Barbadian JL 3.5 catheter and right coronary angiography was performed with a 5-Barbadian FR5 catheter in various views. the decision was made to perform PCI of the circumflex. Heparin was given. A 6-Barbadian CLS 4.0 guide the left main. A 0.014 BMW wire was advanced to the distal circumflex. An additional 0.014 BMW wire was advanced to the distal small caliber OM1 branch. Just with requiring the artery there was poor antegrade flow. Predilation was performed with a 3.0 balloon. With the help of a guideline or, a 3.5 x 33 mm Xience ELI was placed in the mid distal circumflex jailing the small caliber OM1 branch. There is still SANDY 3 flow noted in the OM1 branch. Intravascular ultrasound showed some mild underexpansion and theref ore the stent was postdilated with a 4.0 noncompliant balloon. Final angiograms were performed. Repeat intravascular ultrasound showed no dissection with well- expanded stent. Preintervention there was 95% stenosis with SANDY 3 flow postintervention there was less than 10% stenosis with SANDY 3 flow. The right radial sheath was removed and a TR band was placed with hemostasis achieved. The patient tolerated the procedure well. Patient was transported back to the post catheterization holding area in stable condition. Conscious Sedation: Patient was monitored under the direct supervision of myself for conscious sedation using Versed and fentanyl for a total duration of 52 minutes HEMODYNAMICS: Ao: 137/77 SELECTIVE CORONARY ARTERIOGRAPHY: LEFT MAIN: The left main is a large caliber vessel which bifurcates into the LAD and circumflex. There is no significant stenosis. LEFT ANTERIOR DESCENDING CORONARY ARTERY: LAD is a large caliber vessel which wraps around to the apex. There is mild mid LAD 20-30% stenosis and mild luminal irregularities. LEFT CIRCUMFLEX CORONARY ARTERY: Left circumflex is a moderate caliber vessel with a mid circumflex 95-99% distal before a mall caliber OM1 branch and more distal flow OM1 branch there is diffuse 60-70% stenosis. This gives off a moderate to large caliber OM 2 and on 3 branch. RIGHT CORONARY ARTERY: The right coronary artery is a large caliber vessel which gives off a PDA and PLV branch and is the dominant vessel. There is mild proximal and mid RCA 20-30% stenosis FINAL IMPRESSION: 1. CAD as described above including 20-30% LAD, 20-30% RCA and 99% mid circumflex stenosis 2. S/p PCI mid circumflex with a 3.5 x 33m Xience ELI, post dilated with a 4.0mm NC balloon PLAN: 1. Aggressive risk factor modification per most recent ACC/AHA guidelines. 2. Continue dual antiplatelets with aspirin and Brillinta for 12 months. Goal LDL <70
[2024-02-04 16:23] LABS: Glucose,Whole Blood 102 mg/dL (70-110)
[2024-02-04] MEDS: SODIUM CHLORIDE 0.9% 1,000 ML in EMPTY BAG 1 BAG IV SCH (16:34)
[2024-02-04 20:01] LABS: Glucose,Whole Blood 159 mg/dL (70-110)
[2024-02-04] MEDS: TICAGRELOR 90 MG TAB PO SCH (20:14)
[2024-02-04] MEDS: ATORVASTATIN 80 MG TAB PO SCH (20:14)
[2024-02-05 06:09] LABS: Glucose,Whole Blood 105 mg/dL (70-110)
[2024-02-05 08:13] LABS: African American GFR (CKD) >90 (>60 ml/min/1.73 sqM); Non-African American GFR(CKD) 79 (>60 ml/min/1.73 sqM)
[2024-02-05 08:21] VITALS: TEMP 98.1
[2024-02-05] MEDS: ASPIRIN 81 MG PO SCH (08:24)
--- NOTE | 2024-02-05 09:36 | P.HPIM ---
History of Present Illness H&P Date: 02/04/24 History of present illness; patient 73-year-old gentleman with past medical history significant for hypertension, diabetes mellitus in the ER because of chest discomfort. Patient stated he was all right this evening when he started experiencing chest discomfort that was central in location, pressure-like, radiating to both arms, aggravated by exertion, no relieving factors with the chest pain. Patient denies any shortness of breath. There was no complaint of any orthopnea or PND. There is no complaint of palpitation. Patient denies any nausea, vomiting abdominal pain. Because of the chest discomfort patient became concerned and decided to come to the ER Initial lab work done in the ER showed WBC 7.6, hemoglobin 14.6, platelet count 240, D-dimer 0.56, sodium 3, potassium 4.2, BUN 33, creatinine 1.18, troponin 0.032, repeat 1-1.370 EKG done in the ER showed heart rate of 84, ST segment depression seen in V 3 V4 V5 V6, no T-wave inversions seen. Chest x-ray done in the ER no acute pulmonary process Patient admitted to internal medicine service REVIEW OF SYSTEMS: CONSTITUTIONAL: No fever, no malaise, no fatigue. HEENT: No recent visual problems or hearing problems. Denied any sore throat. CARDIOVASCULAR: As mentioned above PULMONARY: As mentioned above GASTROINTESTINAL: No diarrhea, no nausea, no vomiting, no abdominal pain. NEUROLOGICAL: No headaches, no weakness, no numbness. HEMATOLOGICAL: Denies any bleeding or petechiae. GENITOURINARY: Denies any burning micturition, frequency, or urgency. MUSCULOSKELETAL/RHEUMATOLOGICAL: Denies any joint pain, swelling, or any muscle pain. ENDOCRINE: Denies any polyuria or polydipsia. The rest of the 14-point review of systems is negative. PHYSICAL EXAMINATION: GENERAL: The patient is alert and oriented x3, not in any acute distress. Well developed, well nourished. HEENT: Pupils are round and equally reacting to light. EOMI. No scleral icterus. No conjunctival pallor. Normocephalic, atraumatic. No pharyngeal erythema. No thyromegaly. CARDIOVASCULAR: S1 and S2 present. No murmurs, rubs, or gallops. PULMONARY: Chest is clear to auscultation, no wheezing or crackles. ABDOMEN: Soft, nontender, nondistended, normoactive bowel sounds. No palpable organomegaly. MUSCULOSKELETAL: No joint swelling or deformity. EXTREMITIES: No cyanosis, clubbing, or pedal edema. NEUROLOGICAL: Gross neurological examination did not reveal any focal deficits. SKIN: No rashes. Assessment and plan NSTEMI Hypertension hyperlipidemia Monitor vital signs Monitor CBC Monitor CMP Continue telemetry monitoring Trend troponins. Ordered 2D echo Ordered pharmacy to dose heparin Check TSH Check HbA1c level Check lipid panel Resume home med Consult cardiology Labs and medication were reviewed.. Continue same treatment. Continue with symptomatic treatment. Resume home medication. Monitor labs and vitals. DVT and GI prophylaxis. Further recommendations as per clinical course of the patient Dictation was produced using [email or web address] dictation software. please excuse any grammatical, word or spelling errors. Past Medical History Past Medical History: Cancer, Diabetes Mellitus, Hyperlipidemia, Hypertension, Osteoarthritis (OA) Additional Past Medical History / Comment(s): parotidectomy with nerve damage causing right sided facial paralysis. lagophthalmos (cannot fully close right eye) History of Any Multi-Drug Resistant Organisms: None Reported Past Surgical History: Orthopedic Surgery Additional Past Surgical History / Comment(s): parotidectomy. achilles repair. bilat knee replacement. eyelid weighting Past Psychological History: No Psychological Hx Reported Smoking Status: Former smoker Past Alcohol Use History: None Reported Past Drug Use History: None Reported Medications and Allergies Allergies Allergy/AdvReac Type Severity Reaction Status Date / Time No Known Allergies Allergy Verified 02/04/24 08:17 Physical Exam Vitals: Vital Signs Temp Pulse Pulse Resp BP Pulse Ox 02/04/24 07:15 97.8 F 82 16 108/86 99 02/04/24 06:39 75 16 117/83 96 02/04/24 05:22 97 16 128/84 96 02/04/24 04:17 79 16 135/75 95 02/04/24 02:29 92 12 128/77 97 02/04/24 00:49 77 14 127/69 95 02/03/24 23:16 93 11 L 117/69 94 L 02/03/24 21:35 92 16 123/74 95 02/03/24 20:29 106 H 18 155/89 94 L 02/03/24 20:05 94 02/03/24 19:28 97.9 F 69 16 182/91 97 Intake and Output 02/03/24 02/04/24 02/04/24 22:59 06:59 14:59 Intake Total 48.667 Balance 48.667 Intake: Intake, IV Titration 48.667 Amount Heparin Sod,Pork in 0.45% 48.667 NaCl 25,000 unit In 0.45 % NaCl 1 250ml.bag @ 10. 599 UNITS/KG/HR 10 mls/hr IV .Q24H [facility] Rx#: [id number] Other: Weight 94.347 kg Results CBC & Chem 7: 02/03/24 19:43 02/03/24 19:43 Labs: Abnormal Lab Results - Last 24 Hours (Table) 02/03/24 02/03/24 02/03/24 Range/Units 19:43 19:43 22:54 PT 9.8 L (10.0-12.5) sec APTT (22.0-30.0) sec BUN 33 H (9-20) mg/dL Glucose 192 H (74-99) mg/dL Troponin I 1.370 H* (0.000-0.034) ng/mL Triglycerides (0.00-149.00) mg/dL Cholesterol (0.00-200.00) mg/dL VLDL Cholesterol, Calc (5.00-40.00) mg/dL 02/04/24 02/04/24 02/04/24 Range/Units 00:28 05:39 05:39 PT (10.0-12.5) sec APTT 41.0 H (22.0-30.0) sec BUN (9-20) mg/dL Glucose (74-99) mg/dL Troponin I 2.610 H* (0.000-0.034) ng/mL Triglycerides 267.00 H (0.00-149.00) mg/dL Cholesterol 222.00 H (0.00-200.00) mg/dL VLDL Cholesterol, Calc 53.40 H (5.00-40.00) mg/dL
[2024-02-05 10:22] LABS: ALT 43 U/L (4-49); AST 75 U/L (17-59); Albumin 3.5 g/dL (3.5-5.0); Alkaline Phosphatase 89 U/L (38-126); Anion Gap 3 mmol/L; Blood Urea Nitrogen 19 mg/dL (9-20); Carbon Dioxide 27 mmol/L (22-30); Chloride 110 mmol/L (98-107); Glucose 108 mg/dL (74-99); Potassium 4.4 mmol/L (3.5-5.1); Sodium 140 mmol/L (137-145); Total Bilirubin 0.9 mg/dL (0.2-1.3); Total Protein 5.8 g/dL (6.3-8.2)
[2024-02-05 11:16] VITALS: BMI 25.9
[2024-02-05 11:34] VITALS: BP 140/84; PULSE 69; RESP 16
[2024-02-05 11:34] LABS: Glucose,Whole Blood 97 mg/dL (70-110)
--- NOTE | 2024-02-05 12:35 | P.DS ---
Providers Date of admission: 02/04/24 13:23 Expected date of discharge: 02/05/24 Attending physician: Brady Lewis MD Consults: 02/03/24 20:58 Consult Physician Urgent Consulting Provider: Davin Crowder Consult Reason/Comments: cp Do you want consulting provider notified?: Yes 02/04/24 16:11 Consult Physician Routine Consulting Provider: [facility] Consult Reason/Comments: Post Interventional Patient Do you want consulting provider notified?: Already Contacted Primary care physician: Physician Nonstaff Hospital Course: Discharge diagnoses; NSTEMI Hypertension hyperlipidemia Hospital course; patient 73-year-old gentleman with past medical history significant for hypertension, diabetes mellitus in the ER because of chest discomfort. Patient stated he was all right this evening when he started experiencing chest discomfort that was central in location, pressure-like, radiating to both arms, aggravated by exertion, no relieving factors with the chest pain. Patient denies any shortness of breath. There was no complaint of any orthopnea or PND. There is no complaint of palpitation. Patient denies any nausea, vomiting abdominal pain. Because of the chest discomfort patient became concerned and decided to come to the ER Initial lab work done in the ER showed WBC 7.6, hemoglobin 14.6, platelet count 240, D-dimer 0.56, sodium 3, potassium 4.2, BUN 33, creatinine 1.18, troponin 0.032, repeat 1-1.370 EKG done in the ER showed heart rate of 84, ST segment depression seen in V 3 V4 V5 V6, no T-wave inversions seen. Chest x-ray done in the ER no acute pulmonary process Patient admitted to internal medicine service 02/04. Patient seen examined. S/p PCI mid circumflex. Cardiology recommended discharging patient on dual antiplatelet therapy. Patient to follow-up outpatient with PCP and cardiology PHYSICAL EXAMINATION: GENERAL: The patient is alert and oriented x3, not in any acute distress. Well developed, well nourished. HEENT: Pupils are round and equally reacting to light. EOMI. No scleral icterus. No conjunctival pallor. Normocephalic, atraumatic. No pharyngeal erythema. No thyromegaly. CARDIOVASCULAR: S1 and S2 present. No murmurs, rubs, or gallops. PULMONARY: Chest is clear to auscultation, no wheezing or crackles. ABDOMEN: Soft, nontender, nondistended, normoactive bowel sounds. No palpable organomegaly. MUSCULOSKELETAL: No joint swelling or deformity. EXTREMITIES: No cyanosis, clubbing, or pedal edema. NEUROLOGICAL: Gross neurological examination did not reveal any focal deficits. SKIN: No rashes. Dictation was produced using [employer] dictation software. please excuse any grammatical, word or spelling errors. Patient Condition at Discharge: Good Plan - Discharge Summary Discharge Rx Participant: No New Discharge Prescriptions: New Aspirin 81 mg PO DAILY tab Ticagrelor [Brilinta] 90 mg PO BID #180 tab Atorvastatin [Lipitor] 80 mg PO HS #90 tab Metoprolol Tartrate [Lopressor] 25 mg PO BID #180 tab Nitroglycerin Sl Tabs [Nitrostat] 0.4 mg SUBLINGUAL Q5M PRN #25 tab PRN Reason: Chest Pain Continue Linaclotide [Linzess] 72 mcg PO DAILY DULoxetine HCL [Cymbalta] 30 mg PO DAILY Solifenacin Succinate [Vesicare] 10 mg PO DAILY Valsartan/Hydrochlorothiazide [Valsartan-Hctz 80-12.5 mg Tab] 1 tab PO DAILY Discharge Medication List DULoxetine HCL [Cymbalta] 30 mg PO DAILY 02/04/24 [History] Linaclotide [Linzess] 72 mcg PO DAILY 02/04/24 [History] Solifenacin Succinate [Vesicare] 10 mg PO DAILY 02/04/24 [History] Valsartan/Hydrochlorothiazide [Valsartan-Hctz 80-12.5 mg Tab] 1 tab PO DAILY 02/04/24 [History] Aspirin 81 mg PO DAILY tab 02/05/24 [Rx] Atorvastatin [Lipitor] 80 mg PO HS #90 tab 02/05/24 [Rx] Metoprolol Tartrate [Lopressor] 25 mg PO BID #180 tab 02/05/24 [Rx] Nitroglycerin Sl Tabs [Nitrostat] 0.4 mg SUBLINGUAL Q5M PRN #25 tab 02/05/24 [Rx] Ticagrelor [Brilinta] 90 mg PO BID #180 tab 02/05/24 [Rx] Follow up Appointment(s)/Referral(s): Gilmer Pendleton DO [STAFF PHYSICIAN] - 1 Week Nonstaff,Physician [Primary Care Provider] - 1-2 days Discharge Disposition: HOME SELF-CARE
--- NOTE | 2024-02-06 12:16 | P.PN ---
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 He denies any previous history of cardiac disease and has never had a heart catheterization nor stress test. Patient complains of jaw pain thought to be related to parotid surgery, increased fatigue for one week along with chest pain across chest. No shortness of breath, nausea, lightheadedness, dizziness. Symptoms seemed to get more frequent and noticed chest pain more severe yesterday after walking up and down a flight of stairs. Blood pressure 151/97, heart rate 82, pulse ox 99% on room air. Patient is seen today in the emergency center waiting for a bed on the cardiac stepdown unit. Patient has been started on a heparin drip and Nitropaste. Discussed option of cardiac catheterization and patient is agreeable to move forward with this today. Regarding family medical history, patient does not know any of his family medical history as he is adopted.. - EKG: Multiple EKGs reviewed, evidence of ST depression laterally and PACs, improvement of ST depression noted on last EKG - Chest x-ray: No acute process. - Laboratory studies: Troponin 0.032, 1.37, 2.61. BUN 33 creatinine 1.18, potassium 4.2. Blood sugar 192. CBC unremarkable. D-dimer 0.56. - Home cardiac medications: Valsartan/HCTZ 80-12 daily. 02/05/24 Patient seen and examined. Yesterday, patient underwent cardiac catheterization with Dr. Pendleton which revealed coronary artery disease with 20 to 30% LAD, 20 to 30% RCA and 99% mid circumflex stenosis and subsequently underwent PCI of the mid circumflex with ELI. Patient states he has had no discomfort in his chest following the cardiac catheterization. Echocardiogram reveals EF 55%, mild aortic regurgitation, mild tricuspid regurgitation. Aortic root measuring 3.8 cm at the upper limit of normal. Echocardiogram report reviewed with the patient.Blood pressure 124/52, heart rate 89, pulse ox 95% on room air. Repeat blood work reveals BUN 19 creatinine 0.97, potassium 4.4. Physical examination: Gen: This is a 73-year-old male in no acute distress VS: reviewed HEENT: Head is atraumatic, normocephalic. Pupils equal, round. Sclerae is anicteric. NECK: Supple. No JVD. LUNGS: Clear to auscultation. No wheezes or rhonchi. No intercostal retractions. HEART: Regular rate and rhythm. No murmur. ABDOMEN: Soft No tenderness. EXTREMITIES: No pedal edema. No calf tenderness. NEUROLOGICAL: Patient is awake, alert and oriented x3. Assessment: NSTEMI status post PCI of the mid circumflex Chest pain secondary to above Parotid cancer s/p resection and radiation Hypertension History of diabetes off medication following weight loss Remote history of tobacco use Weekly alcohol use 5 drinks or less Plan: Continue pateint on aspirin 81 mg daily, atorvastatin 80 mg hs, metoprolol tartrate 25 mg bid, Brilinta 90 mg twice daily, Nitrostat--prescription sent to his pharmacy Continue valsartan hydrochlorothiazide Patient is cleared for discharge and may follow-up with Dr. Pendleton in 1 week. Nurse practitioner note has been reviewed, I agree with documented findings and plan of care. Patient was seen and examined. Objective - Vital Signs Vital signs: Vital Signs Temp 98.1 F 02/05/24 08:20 Pulse 69 02/05/24 11:33 Resp 16 02/05/24 11:33 BP 140/84 02/05/24 11:33 Pulse Ox 99 02/05/24 11:33 FiO2 Intake & Output 02/04/24 02/05/24 02/05/24 18:59 06:59 18:59 Intake Total 487.766 118 Balance 487.766 118 Weight 94.347 kg 94.4 kg 94.4 kg Intake: IV 280 Intake, IV Titration 87.766 Amount Heparin Sod,Pork in 0.45% 87.766 NaCl 25,000 unit In 0.45 % NaCl 1 250ml.bag @ 10. 599 UNITS/KG/HR 10 mls/hr IV .Q24H JOHN PAUL Rx#: [id number] Oral 120 118 Other: Voiding Method Toilet Toilet Urinal Urinal # Voids 0 - Labs CBC & Chem 7: 02/03/24 19:43 02/05/24 05:35 Labs: Abnormal Lab Results - Last 24 Hours (Table) 02/04/24 02/04/24 02/05/24 Range/Units 11:58 20:00 05:35 APTT 53.4 H (22.0-30.0) sec Chloride 110 H (98-107) mmol/L Glucose 108 H (74-99) mg/dL POC Glucose (mg/dL) 159 H (70-110) mg/dL AST 75 H (17-59) U/L Total Protein 5.8 L (6.3-8.2) g/dL
--- NOTE | 2024-03-06 17:54 | CDI ---
Documentation Clarification Form Date: 03/06/2024 05:31:10 PM From: Savana Sauer Phone: Admit Date: 02/04/2024 01:23:00 PM Patient Name: Sidney Lieberman Visit Number: [id number] Discharge Date: 02/05/2024 01:04:00 PM ATTENTION: The Clinical Documentation Specialists (CDI) and [facility] Coding Staff appreciate your assistance in clarifying documentation. Please respond to the clarification below the line at the bottom and electronically sign. The CDI & [facility] Coding staff will review the response and follow-up if needed. Please note: Queries are made part of the Legal Health Record. If you have any questions, please contact the author of this message via ITS. Doctor/Provider: Michi Morris Diabetes is documented per PMH. Additional specificity regarding the diabetes diagnosis is requested. History/Risk Factors: 73yo M, NSTEMI, HTN, HLD, CAD, former smoker Clinical Indicators: Glucose: 02/02 192 02/04 108-159 Treatment: monitored; history ofDMoff medication afterweight loss, Please clarify the type of diabetes, if known: [ ] Diabetes Type 2 without complications [ x] Diabetes Type 2 with hyperglycemia [ ] No additional diagnosis [ ] Other, please specify [ ] Unable to Determine (Template Last Revised: May 2020) MTDD
== END 2024-02-05 13:04 | disposition home or self-care (01) | DRG 322 ==
LOC: EC 19:28 → 6NMEDSUR 20:58 → 3SCARD 02-04 02:19 → OBSVTOIN 02-04 13:23 → 3SCARD 02-04 14:23
PROVIDERS: ADMIT Internal Medicine; ATTEND Internal Medicine
PROC: 027034Z Dilation of Coronary Artery, One Artery with Drug-eluting Intraluminal Device, Percutaneous Approach (ICD-10-PCS; principal; 2024-02-04 15:10)
PROC: B2111ZZ Fluoroscopy of Multiple Coronary Arteries using Low Osmolar Contrast (ICD-10-PCS; 2024-02-04 15:10)
PROC: B240ZZ3 Ultrasonography of Single Coronary Artery, Intravascular (ICD-10-PCS; 2024-02-04 15:10)
DX: I21.4 Non-ST elevation (NSTEMI) myocardial infarction (principal); E11.65 Type 2 diabetes mellitus with hyperglycemia; I10 Essential (primary) hypertension; I08.2 Rheumatic disorders of both aortic and tricuspid valves; I25.10 Atherosclerotic heart disease of native coronary artery without angina pectoris; E78.5 Hyperlipidemia, unspecified; G51.0 Bell's palsy; Z96.653 Presence of artificial knee joint, bilateral; Z87.891 Personal history of nicotine dependence; Z85.818 Personal history of malignant neoplasm of other sites of lip, oral cavity, and pharynx; Z92.3 Personal history of irradiation
CPT/HCPCS: 36415; 71046; 80053; 80061; 83735; 84484; 85025; 85379; 85610; 85730; 92978; 93005; 93306; 93454; 96365; 96366; 99285

== ENCOUNTER → 2024-10-09 | Outpatient (CLI) | payer MEDICARE ==
[2024-10-10 02:33] LABS: Basophils # (A) 0.04 X 10*3/uL (0.00-0.10); Basophils % (A) 0.6 %; Eosinophils # (A) 0.16 X 10*3/uL (0.04-0.35); Eosinophils % (A) 2.3 %; HCT 43.6 % (39.6-50.0); HGB 13.5 g/dL (13.0-17.0); Immature Grans, Automated 1.00 %; Lymphocytes # (A) 1.67 X 10*3/uL (0.90-5.00); Lymphocytes % (A) 23.6 %; MCH 30.5 pg (27.0-32.0); MCHC 31.0 g/dL (32.0-37.0); MCV 98.6 FL (80.0-97.0); Monocytes # (A) 0.79 X 10*3/uL (0.20-1.00); Monocytes % (A) 11.2 %; NRBC Per 100 WBC 0 X 10*3/uL (0.00-0.01); Neutrophils # (A) 4.35 X 10*3/uL (1.80-7.70); Neutrophils % (A) 61.3 %; Platelet Count 286 X 10*3/uL (140-440); RBC 4.42 X 10*6/uL (4.40-5.60); RDW 14.2 % (11.5-14.5); WBC 7.08 X 10*3/uL (4.50-10.00)
[2024-10-10 03:08] LABS: ALT 34 U/L (10-49); AST 25 U/L (14-35); Albumin 4.5 g/dL (3.8-4.9); Albumin/Globulin Ratio 2.05 Ratio (1.60-3.17); Alkaline Phosphatase 129 U/L (41-126); Anion Gap 11.70 mmol/L (4.00-12.00); BUN/Creat Ratio 17.90 Ratio (12.00-20.00); Blood Urea Nitrogen 17.9 mg/dL (9.0-27.0); Calcium 9.7 mg/dL (8.7-10.3); Carbon Dioxide 26.3 mmol/L (21.6-31.8); Chloride 104 mmol/L (96-109); Globulin 2.2 g/dL (1.6-3.3); Glucose 97 mg/dL (70-110); Potassium 5.2 mmol/L (3.5-5.5); Sodium 142 mmol/L (135-145); Total Protein 6.7 g/dL (6.2-8.2)
== END | disposition home or self-care (01) ==
LOC: LABWHC1 16:22
PROVIDERS: ATTEND Internal Medicine
DX: I48.91 Unspecified atrial fibrillation (principal)
CPT/HCPCS: 36415; 80053; 84443; 85025

== ENCOUNTER 2024-10-13 06:09 | Day surgery (SDC) | payer MEDICARE ==
[2024-10-13] MEDS: IV FLUID CONTINUATION 1,000 ML IV ONE (06:54)
[2024-10-13] MEDS: SODIUM CHLORIDE 0.9% 500 ML 500 ML IV ONE (06:54)
[2024-10-13 07:00] VITALS: TEMP 97.2
[2024-10-13 07:05] LABS: Glucose,Whole Blood 114 mg/dL (70-110)
[2024-10-13] MEDS ORDERED: LIDOCAINE 2% (PF) 20 MG/ML 5 ML VIAL ONE (07:13)
[2024-10-13] MEDS ORDERED: PROPOFOL 10 MG/ML 20 ML VIAL IV ONE (07:13)
[2024-10-13] MEDS: BENZOCAINE SPRAY 1 EACH MUCOUS MEM STA (07:15)
--- NOTE | 2024-10-13 07:30 | P.TEE ---
Description of Procedure(s): Procedure performed: Transesophageal Echocardiogram with color flow doppler, pulsed wave doppler and continuous wave doppler, synchronized cardioversion Moderate conscious sedation: Moderate conscious sedation was supplied by anesthesia, see separate report. Complications: none Indications: Atrial flutter PROCEDURE: After the risks, benefits and alternatives of the above mentioned procedure was explained in detail with the patient, informed consent was obtained. Patient was brought to the lab in a fasting state. Patient was given sedation by anesthesia, see separate report. The throat was sprayed with Hurricane to anesthetize the throat. A lubricated Omni probe was then introduced into the esophagus and stomach and multiple views were obtained. 2D echo with color flow doppler, pulsed wave doppler and continuous wave doppler was utilized. Agitated saline bubbles were injected to assess for any intra- atrial shunt. The probe was then removed. There was no thrombus noted and therefore patient underwent synchronized cardioversion x 1 with 200J with resultant sinus rhythm. Patient tolerated the procedure well. Patient was transferred to the post procedure area in stable and satisfactory condition. FINDINGS: 1. The aortic valve is tricuspid with normal function with mild to moderate aortic insufficiency. 2. The mitral valve appears be normal with mild mitral regurgitation. 3. Tricuspid valve appears to be normal with trace tricuspid regurgitation. 4. The interatrial septum is intact. No evidence of PFO. 5. Left atrial appendage is free of clot. 6. Left ventricular ejection fraction 50%
[2024-10-13 08:07] VITALS: RESP 16
[2024-10-13 08:19] VITALS: BP 108/67; PULSE 52
== END 2024-10-13 08:46 ==
LOC: OR 06:09
PROVIDERS: ATTEND Internal Medicine
DX: I48.3 Typical atrial flutter (principal); I08.3 Combined rheumatic disorders of mitral, aortic and tricuspid valves; I48.91 Unspecified atrial fibrillation; I25.2 Old myocardial infarction; I10 Essential (primary) hypertension; I25.10 Atherosclerotic heart disease of native coronary artery without angina pectoris; E11.9 Type 2 diabetes mellitus without complications; E78.2 Mixed hyperlipidemia; Z79.899 Other long term (current) drug therapy; Z95.5 Presence of coronary angioplasty implant and graft; Z79.01 Long term (current) use of anticoagulants; Z85.51 Personal history of malignant neoplasm of bladder; Z87.891 Personal history of nicotine dependence; Z79.82 Long term (current) use of aspirin
CPT/HCPCS: 93312; 93325; 92960; J2704; J2003